=== PATIENT | male | born 1940 | race Caucasian/White ===

== ENCOUNTER 2018-01-07 15:28 | Inpatient (IN) | payer OTHER, MEDICARE ==
[2018-01-07 15:45] VITALS: BP 119/88; PULSE 96; RESP 18; TEMP 98.1; O2SAT 96
[2018-01-07 17:51] LABS: AUTOMATED NEUTROPHIL # 5.4 TH/MM3 (1.8-7.7); BASOPHIL % 0.3 % (0.0-2.0); EOSINOPHIL % 0.4 % (0.0-4.0); HEMATOCRIT 45.3 % (39.0-51.0); HEMOGLOBIN 15.9 GM/DL (13.0-17.0); LYMPH % 22.2 % (9.0-44.0); LYMPHOCYTE # 1.7 TH/MM3 (1.0-4.8); MEAN CELL VOLUME 91.6 FL (80.0-100.0); MEAN CORPUSCULAR HEMOGLOBIN 32.2 PG (27.0-34.0); MEAN CORPUSCULAR HGB CONC 35.2 % (32.0-36.0); MEAN PLATELET VOLUME 10.6 FL (7.0-11.0); MONO % 5.6 % (0.0-8.0); MONOCYTE # 0.4 TH/MM3 (0-0.9); NEUT % 71.5 % (16.0-70.0); PLATELET COUNT 151 TH/MM3 (150-450); RED BLOOD COUNT 4.95 MIL/MM3 (4.50-5.90); WHITE BLOOD COUNT 7.5 TH/MM3 (4.0-11.0)
[2018-01-07 18:11] LABS: ALBUMIN 4.2 GM/DL (3.4-5.0); ALT (GPT) 19 U/L (12-78); AST (GOT) 23 U/L (15-37); BICARBONATE 25.9 MEQ/L (21.0-32.0); BLOOD UREA NITROGEN 6 MG/DL (7-18); CALCIUM 8.6 MG/DL (8.5-10.1); CHLORIDE 104 MEQ/L (98-107); GLOMERULAR FILTRATION RATE 109 ML/MIN (>89); GLUCOSE,RANDOM 97 MG/DL (74-106); SODIUM (NA) 138 MEQ/L (136-145)
[2018-01-07 18:13] LABS: ALKALINE PHOSPHATASE 79 U/L (45-117); TOTAL BILIRUBIN ADULT 0.8 MG/DL (0.2-1.0); TOTAL PROTEIN 7.8 GM/DL (6.4-8.2)
--- NOTE | 2018-01-07 18:16 | PD ---
HPI Chief Complaint: Psychiatric Symptoms Time Seen by Provider: 18:15 Travel History International Travel<30 days: No Contact w/Intl Traveler<30days: No Traveled to known affect area: No History of Present Illness HPI 77-year-old male from [place] visiting his sister, who is brought in under the Barakat act. Patient reports that his daughters called his sister while he was visiting her, and stated that they wanted to have him placed in a nursing facility which made him very upset and he was threatening. He now denies suicidal or homicidal ideation. He states no medical issues or injuries. He has no known drug allergies. [facility] Past Medical History Medical History: Denies Significant Hx Diminished Hearing: No Past Surgical History Surgical History: Unable to Obtain Social History Alcohol Use: No Tobacco Use: Yes Substance Use: No Allergies-Medications (Allergen,Severity, Reaction): Coded Allergies: No Known Allergies (Unverified , 01/07/18) Review of Systems Except as stated in HPI: all other systems reviewed are Neg General / Constitutional: No: Fever Eyes: No: Visual changes HENT: No: Headaches Cardiovascular: No: Chest Pain or Discomfort Respiratory: No: Shortness of Breath Gastrointestinal: No: Abdominal Pain Genitourinary: No: Dysuria Musculoskeletal: No: Pain Skin: No Rash Neurologic: No: Weakness Psychiatric: No: Depression Endocrine: No: Polydipsia Hematologic/Lymphatic: No: Easy Bruising Physical Exam Narrative GENERAL: SKIN: Warm and dry. HEAD: Atraumatic. Normocephalic. EYES: Pupils equal and round. No scleral icterus. No injection or drainage. ENT: No nasal bleeding or discharge. Mucous membranes pink and moist. NECK: Trachea midline. No JVD. CARDIOVASCULAR: Regular rate and rhythm. RESPIRATORY: No accessory muscle use. Clear to auscultation. Breath sounds equal bilaterally. GASTROINTESTINAL: Abdomen soft, non-tender, nondistended. Hepatic and splenic margins not palpable. MUSCULOSKELETAL: Extremities without clubbing, cyanosis, or edema. No obvious deformities. NEUROLOGICAL: Awake and alert. No obvious cranial nerve deficits. Motor grossly within normal limits. Five out of 5 muscle strength in the arms and legs. Normal speech. PSYCHIATRIC: Appropriate mood and affect; insight and judgment normal. Data Data Last Documented VS Vital Signs Date Time Temp Pulse Resp B/P (MAP) Pulse Ox O2 Delivery O2 Flow Rate FiO2 01/07/18 18:00 16 01/07/18 15:45 98.1 96 119/88 (98) 96 Room Air Orders Orders Complete Blood Count With Diff (01/07/18 16:28) Comprehensive Metabolic Panel (01/07/18 16:28) Psych Screen (01/07/18 16:28) Diet Regular Basic (01/07/18 Dinner) Alcohol (Ethanol) (01/07/18 18:32) Labs Laboratory Tests Test 01/07/18 17:35 White Blood Count 7.5 TH/MM3 Red Blood Count 4.95 MIL/MM3 Hemoglobin 15.9 GM/DL Hematocrit 45.3 % Mean Corpuscular Volume 91.6 FL Mean Corpuscular Hemoglobin 32.2 PG Mean Corpuscular Hemoglobin Concent 35.2 % Red Cell Distribution Width 13.0 % Platelet Count 151 TH/MM3 Mean Platelet Volume 10.6 FL Neutrophils (%) (Auto) 71.5 % Lymphocytes (%) (Auto) 22.2 % Monocytes (%) (Auto) 5.6 % Eosinophils (%) (Auto) 0.4 % Basophils (%) (Auto) 0.3 % Neutrophils # (Auto) 5.4 TH/MM3 Lymphocytes # (Auto) 1.7 TH/MM3 Monocytes # (Auto) 0.4 TH/MM3 Eosinophils # (Auto) 0.0 TH/MM3 Basophils # (Auto) 0.0 TH/MM3 CBC Comment DIFF FINAL Differential Comment Blood Urea Nitrogen 6 MG/DL Creatinine 0.70 MG/DL Random Glucose 97 MG/DL Total Protein 7.8 GM/DL Albumin 4.2 GM/DL Calcium Level 8.6 MG/DL Alkaline Phosphatase 79 U/L Aspartate Amino Transf (AST/SGOT) 23 U/L Alanine Aminotransferase (ALT/SGPT) 19 U/L Total Bilirubin 0.8 MG/DL Sodium Level 138 MEQ/L Potassium Level 3.9 MEQ/L Chloride Level 104 MEQ/L Carbon Dioxide Level 25.9 MEQ/L Anion Gap 8 MEQ/L Estimat Glomerular Filtration Rate 109 ML/MIN Ethyl Alcohol Level 150 MG/DL [facility] Medical Decision Making Medical Screen Exam Complete: Yes Emergency Medical Condition: Yes Differential Diagnosis Barakat act. Confusion. Aggressive behavior. Narrative Course Psychiatric labs ordered per protocol. EtOH is 150. Other labs are within normal limits. Psychiatric screening is ordered . Patient is medically cannulated for psych screen. Condition: Stable Fermin Asif Jan 07, 2018 18:16
[2018-01-07] MEDS ORDERED: LORazepam 2 MG TAB PO ONE (21:15)
[2018-01-08] MEDS ORDERED: ACETAMINOPHEN 325 MG TAB PO PRN ×2 (02:45→10:15)
[2018-01-08] MEDS ORDERED: hydrOXYzine HCL 50 MG TAB PO PRN ×2 (02:45→10:15)
[2018-01-08] MEDS ORDERED: ALUMINUM/MAGNESIUM/SIMETH 30 ML CUP PO PRN ×2 (02:45→10:15)
[2018-01-08] MEDS ORDERED: MAGNESIUM HYDROXIDE SUSP 30 ML CUP PO PRN ×2 (02:45→10:15)
[2018-01-08] MEDS ORDERED: diphenhydrAMINE HCL 50 MG CAP PO PRN ×2 (02:45→10:15)
[2018-01-08] MEDS ORDERED: diphenhydrAMINE HCL 50 MG/ML VIAL IM PRN (02:45)
[2018-01-08 06:38] VITALS: BP 150/79; PULSE 78; RESP 16; TEMP 97.6; O2SAT 97
[2018-01-08] MEDS: NICOTINE 21 MG/24 HR PATCH T-DERMAL SCH (09:00)
[2018-01-08] MEDS ORDERED: LORazepam 2 MG TAB PO PRN (10:15)
[2018-01-08] MEDS ORDERED: FLUMAZENIL 0.5 MG/5 ML VIAL IV PUSH PRN (10:15)
[2018-01-08] MEDS ORDERED: LORazepam 1 MG TAB PO PRN (10:15)
[2018-01-08] MEDS ORDERED: LORazepam 2 MG/ML VIAL IV PUSH PRN ×4 (10:15)
--- NOTE | 2018-01-08 10:35 | HHI.HP ---
Provisional Diagnosis Admission Date Jan 08, 2018 at 02:10 [place] [place] other diseases of behavioral issues, Alzheimer's dementia and late onset, alcohol abuse with intoxication Certification of Person's Competence To Provide Express and Informed Consent I have personally examined Levon Crowell , a person being served at [facility] on, Jan 08, 2018 10:18. Express and informed consent means consent voluntarily given in writing, by a competent person, after sufficient explanation and disclosure of the subject matter involved to enable the person to make a knowing and willful decision without any element of force, fraud, deceit, duress, or other form of constraint or coercion. This person is 18 years of age or older, is not now known to be incompetent to consent to treatment with a guardian advocate, and does not have a health care surrogate or proxy currently making medical treatment decisions. I have found this person to be one of the following: [] Competent to provide express and informed consent, as defined above, for voluntary admission to this facility and is competent to provide express and informed consent for treatment. He/she has the consistent capacity to make well reasoned, willful, and knowing decisions concerning his or her medical or mental health treatment. The person fully and consistently understands the purpose of the admission for examination/placement and is fully capable of personally exercising all rights [place] [] Incompetent to provide express and informed consent to voluntary admission, and this is incompetent to provide express and informed consent to treatment. The person must be transferred to involuntary status and a petition for a guardian advocate filed with the Circuit Court. [xx] Refusing to provide express and informed consent to voluntary admission but is competent to provide express and informed consent for treatment. The person must be discharged or transferred to involuntary status. Form shall be completed within 24 hours of a person's arrival at the receiving facility and filed in the clinical record of each person: 1. Admitted on a voluntary basis 2. Permitted to provide express and informed consent to his/her own treatment 3. Allowed to transfer from involuntary to voluntary status 4. Prior to permitting a person to consent to his or her own treatment after having been previously found incompetent to consent to treatment. History of Present Illness Capacity: Lacks Capacity (patient lacks capacity to sign for her hospitalization, patient has capacity to sign for medication) HPI Patient is a 77-year-old white male who appears recently flew from [place] to [place] to be with his sister. It appears to get into an altercation with her sister. Also involved with this appears to be alcohol use patient seen and screened in the ED urine toxicology was not done in the ED. The blood alcohol level of 150 was checked on 01/07. Patient is Barakat acted of the posterior commissure's office on 01/07/18 at 2:13 PM that document reviewed and agreed with this essentially stating subject has Alzheimer's and dementia flew down for [place] because his daughter was going to place him in assisted living subject showed up at his sister's residents got into a verbal argument subject left and has no where to stay subject would suffer from neglect by refusing to care for himself. Patient is seen screened in the ED as mentioned above on medically cleared. At the present time patient sitting quietly in his room. Patient given a somewhat mixed confusing story as to how he wound up here in [place]. He is somewhat discouraging towards his daughters and [place] saying they were living off of his Social Security check and he had to get away from there. Is also somewhat confused between stating he is staying with his sister or his daughter here in [place]. He did acknowledge going to a local bar and having a couple of beers. He did acknowledge drinking 8-12+ beers daily though he minimizes their effect on him. He denies any detox or rehabilitation a legal issues related to the alcohol when asked about his memory issues he said his memory is fine. Patient is aware of his person states he knows he is in a hospital he knows he is in [facility]. However his affect shows some mild incongruity with the statements. Her some lability with this also. He denies any prior psychiatric contact hospitalization a psychotropic medication. He denies any detox or rehabilitation legal issues related to drinking. He denies other drug use. He denies any other criminal or law enforcement issues. At this time patient does meet criteria for further assessment of the Barakat act I'll do first opinion request second opinion. They feel he does have capacity to sign for his medications. We will have the hospitalists consult with us for this gentleman we will place him on [facility] protocol. Attempted to reach patient's sister to discuss with her this showman' s history the behaviors medication and possible placement issues Review of Systems Constitutional: DENIES: Diaphoretic episodes, Fatigue, Fever, Weight gain, Weight loss, Chills, Dizziness, Change in appetite, Night Sweats Endocrine: DENIES: Heat/cold intolerance, Polydipsia, Polyuria, Polyphagia Eyes: DENIES: Blurred vision, Diplopia, Eye inflammation, Eye pain, Vision loss , Photosensitivity, Double Vision Ears, nose, mouth, throat: DENIES: Tinnitus, Hearing loss, Vertigo, Nasal discharge, Oral lesions, Throat pain, Hoarseness, Ear Pain, Running Nose, Epistaxis, Sinus Pain, Toothache, Odynophagia Respiratory: DENIES: Apneas, Cough, Snoring, Wheezing, Hemoptysis, Sputum production, Shortness of breath Cardiovascular: DENIES: Chest pain, Palpitations, Syncope, Dyspnea on Exertion , PND, Lower Extremity Edema, Orthopnea, Claudication Gastrointestinal: DENIES: Abdominal pain, Black stools, Bloody stools, Constipation, Diarrhea, Nausea, Vomiting, Difficulty Swallowing, Anorexia Genitourinary: DENIES: Sexual dysfunction, Urinary frequency, Urinary incontinence, Urgency, Hematuria, Dysuria, Nocturia, Penile Discharge, Testicular Pain, Testicular Swelling Musculoskeletal: DENIES: Joint pain, Muscle aches, Stiffness, Joint Swelling, Back pain, Neck pain Integumentary: DENIES: Abnormal pigmentation, Nail changes, Pruritus, Rash Hematologic/lymphatic: DENIES: Bruising, Lymphadenopathy Immunologic/allergic: DENIES: Eczema, Urticaria Neurologic: DENIES: Abnormal gait, Headache, Localized weakness, Paresthesias, Seizures, Speech Problems, Tremor, Poor Balance Psychiatric: COMPLAINS OF: Anxiety, Mood changes, Agitation Past Psych History Psychological trauma history Patient denies Violence risk - others (6 mos) Patient denies Violence risk - self (6 mos) Patient denies Substance Abuse History Drugs/Alcohol past 12 months Patient active alcohol abuser states he drinks 8-12+ beers daily though he denies hard liquor denies other drug use Past Family Social History Coded Allergies: No Known Allergies (Unverified , 01/07/18) Current Medications Medications (Trade) Dose Ordered Sig/[place] Route Start Time Stop Time Status Last Admin (Atarax) 50 mg Q6H PRN PO 01/08/18 02:45 (Benadryl) 50 mg Q6H PRN PO 01/08/18 02:45 (Benadryl Inj) 50 mg Q6H PRN IM 01/08/18 02:45 (Tylenol) 650 mg Q4H PRN PO 01/08/18 02:45 (Milk Of Magnesia Liq) 30 ml DAILY PRN PO 01/08/18 02:45 (Mag-Al Plus Susp Liq) 30 ml Q6H PRN PO 01/08/18 02:45 (Habitrol 21 Mg Patch.24 Hr) 1 patch DAILY T-DERMAL 01/08/18 09:00 Miscellaneous Information 1 HS T-DERMAL 01/08/18 21:00 Family Psych History Patient denies history of mental health issues and family of origin Social History Patient has 2 adult daughters in [place] has flown to this area to be with his sister Patient's Strengths (min. 2) Patient verbal able [facility] Physical Exam Patient seen screen exam of them medically cleared through ED at the present time patient sitting quietly in his room he is in no acute distress, he is in no respiratory distress. No complaints of abdominal pain. Patient moving all 4 extremities without difficulty. No abnormal motor movements noted Vital Signs Vital Signs Date Time Temp Pulse Resp B/P (MAP) Pulse Ox O2 Delivery O2 Flow Rate FiO2 01/08/18 06:38 97.6 78 16 150/79 (102) 97 01/07/18 15:45 Room Air I/O 01/08/18 01/08/18 01/09/18 08:00 16:00 00:00 Intake Total 240 ml Balance 240 ml Lab Results Test 01/07/18 17:35 White Blood Count 7.5 TH/MM3 Red Blood Count 4.95 MIL/MM3 Hemoglobin 15.9 GM/DL Hematocrit 45.3 % Mean Corpuscular Volume 91.6 FL Mean Corpuscular Hemoglobin 32.2 PG Mean Corpuscular Hemoglobin Concent 35.2 % Red Cell Distribution Width 13.0 % Platelet Count 151 TH/MM3 Mean Platelet Volume 10.6 FL Neutrophils (%) (Auto) 71.5 % Lymphocytes (%) (Auto) 22.2 % Monocytes (%) (Auto) 5.6 % Eosinophils (%) (Auto) 0.4 % Basophils (%) (Auto) 0.3 % Neutrophils # (Auto) 5.4 TH/MM3 Lymphocytes # (Auto) 1.7 TH/MM3 Monocytes # (Auto) 0.4 TH/MM3 Eosinophils # (Auto) 0.0 TH/MM3 Basophils # (Auto) 0.0 TH/MM3 CBC Comment DIFF FINAL Differential Comment Blood Urea Nitrogen 6 MG/DL Creatinine 0.70 MG/DL Random Glucose 97 MG/DL Total Protein 7.8 GM/DL Albumin 4.2 GM/DL Calcium Level 8.6 MG/DL Alkaline Phosphatase 79 U/L Aspartate Amino Transf (AST/SGOT) 23 U/L Alanine Aminotransferase (ALT/SGPT) 19 U/L Total Bilirubin 0.8 MG/DL Sodium Level 138 MEQ/L Potassium Level 3.9 MEQ/L Chloride Level 104 MEQ/L Carbon Dioxide Level 25.9 MEQ/L Anion Gap 8 MEQ/L Estimat Glomerular Filtration Rate 109 ML/MIN Ethyl Alcohol Level 150 MG/DL Mental Status Examination Appearance: Appropriate Consciousness: Alert Orientation: Person, Place, Date/Time Motor Activity: Normal gait Speech: Unremarkable Language: Adequate Fund of Knowledge: Adequate Attention and Concentration: Other (fair) Memory: Unremarkable (fair) Mood: Other (euthymic to mildly guarded) Affect: Other (slight decreased range and intensity) Thought Process & Associations: Linear Thought Content: Other (though paranoid) Hallucination Type: None Delusion Type: Paranoid (vigilant focusing on daughter's) Suicidal Ideation: No Suicidal Plan: No Suicidal Intention: No Homicidal Ideation: No Homicidal Plan: No Homicidal Intention: No Insight: Poor Judgment: Poor Assessment & Plan Problem List: (1) DEMENTIA IN OTH DISEASES CLASSD ELSWHR W BEHAVIORAL DISTURB ICD Codes: F02.81 - DEMENTIA IN OTH DISEASES CLASSD ELSWHR W BEHAVIORAL DISTURB (2) ALZHEIMER'S DISEASE WITH LATE ONSET ICD Codes: G30.1 - ALZHEIMER'S DISEASE WITH LATE ONSET (3) ALCOHOL ABUSE WITH INTOXICATION, UNCOMPLICATED ICD Codes: F10.120 - ALCOHOL ABUSE WITH INTOXICATION, UNCOMPLICATED Assessment & Plan Estimated LOS: 5-7 days this time patient meets criteria for further observation assessment under the Barakat act I'll do first opinion request second opinion. I feel this of capacity self-medication. Though the hospice consult will us. Will place the patient on the [facility] protocol. We will attempt to reach patient's sister to refer family meeting for next 1-2 days to further discuss this gentleman's diagnosis treatment and placement options Discharge Planning This needs to discuss the patient's family Request HC Surrog/Guard Advoc?: No Kiel De La Torre MD Jan 08, 2018 10:35
--- NOTE | 2018-01-08 16:29 | PD.HHIRCNE ---
Disclaimer Patient was given an explanation of the nature and purpose of the evaluation. Patient agreed to proceed with the evaluation and treatment plan. History Reason for Referral The patient is a 77 year old right handed male status who presented to the [facility] ED under Barakat Act for inability to care for self. He flew from [place] to [place] to see his sister, who lives in the area, and became intoxicated, which is reportedly a chronic problem for the patient. Neuroimaging has not been completed. His laboratory values have been unremarkable. He is referred for baseline neuropsychological evaluation to assess cognitive, behavioral and emotional aspects of the injury and to provide treatment recommendations. He is from [place] originally, moving to [place] and then to [place] and finally [place]. He graduated high school, and was an average student. He was in the during [place], but reported to service connected illnesses. 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 He is x 2, x 2 and has two children in [place]. Additional Psychosocial Hx Tobacco Use In Past 12 Months: Cigarettes Hx Caffeine Use: Yes Hx Substance Use: No Level of Education: High School Employment Status: Retired Prior Living Setting: Home Dominant Hand: Right Past Surgical/Medical History Past Surgery: No Major surgery in last 100 days: Unknown Hx of Neuro Prob: No Hx of Musculoskeletal Pro: No Hx of Cardiovascular Prob: No Hx of Respiratory Problem: No Hx of GI Problems: No Hx of Problems: No Hx of Immuno Disor: No Hx of Endocrine Problems: No Hx of Eye Probl: Yes (WEARS GLASSES) Hx of Hearing or Ear Problems: No Hx Dental Problems: No Hx Psychiatric Problems: No Hx Blood Dyscrasias: No Hx of MDRO: No Hx of Body/Medical Devices: No Blood Transfusion History Will receive Blood /Blood prod: Yes Medication Active Medications Acetaminophen (Tylenol) 650 mg Q4H PRN PO; Start 01/08/18 at 02:45; Stop at 10:21; Status DC Acetaminophen (Tylenol) 650 mg Q4H PRN PO; Start 01/08/18 at 10:15 Al Hydrox/Mg Hydrox/Simethicone (Mag-Al Plus Susp Liq) 30 ml Q6H PRN PO; Start 01/08/18 at 02:45; Stop 01/08/18 at 10:21; Status DC Al Hydrox/Mg Hydrox/Simethicone (Mag-Al Plus Susp Liq) 30 ml Q6H PRN PO; Start 01/08/18 at 10:15 Diphenhydramine HCl (Benadryl Inj) 50 mg Q6H PRN IM; Start 01/08/18 at 02:45 Diphenhydramine HCl (Benadryl) 50 mg HS PRN PO; Start 01/08/18 at 10:15 Diphenhydramine HCl (Benadryl) 50 mg Q6H PRN PO; Start 01/08/18 at 02:45 Flumazenil (Romazicon Inj) 0.2 mg Q1M PRN IV PUSH; Start 01/08/18 at 10:15 Hydroxyzine HCl (Atarax) 50 mg Q6H PRN PO; Start 01/08/18 at 02:45 Hydroxyzine HCl (Atarax) 50 mg Q6H PRN PO; Start 01/08/18 at 10:15 Lorazepam (Ativan Inj) 1 mg Q4H PRN IV PUSH; Start 01/08/18 at 10:15 Lorazepam (Ativan Inj) 2 mg Q15M PRN IV PUSH; Start 01/08/18 at 10:15 Lorazepam (Ativan Inj) 2 mg Q1H PRN IV PUSH; Start 01/08/18 at 10:15 Lorazepam (Ativan Inj) 2 mg Q2H PRN IV PUSH; Start 01/08/18 at 10:15 Lorazepam (Ativan) 1 mg Q4H PRN PO; Start 01/08/18 at 10:15 Lorazepam (Ativan) 2 mg ONCE ONCE PO Last administered on 01/07/18at 21:34; Admin Dose 2 MG; Start 01/07/18 at 21:15; Stop 01/07/18 at 21:16; Status DC Lorazepam (Ativan) 2 mg Q2H PRN PO; Start 01/08/18 at 10:15 Magnesium Hydroxide (Milk Of Magnesia Liq) 30 ml DAILY PRN PO; Start 01/08/18 at 02:45; Stop 01/08/18 at 10:21; Status DC Magnesium Hydroxide (Milk Of Magnesia Liq) 30 ml DAILY PRN PO; Start 01/08/18 at 10:15 Miscellaneous Information 1 HS T-DERMAL; Start 01/08/18 at 21:00 Nicotine (Habitrol 21 Mg Patch.24 Hr) 1 patch DAILY T-DERMAL; Start 01/08/18 at 09:00 Mental Status Assessment Orientation: oriented to Self, oriented to Place, oriented to Time, oriented to Situation Mental Status: WFL: Language/Interactions, Attention, Visuospatial/Construction , Impaired: Thought processing, Learning/Memory, Problem-Solving Adjustment/Coping Assessment Adjustment/Coping: None: Depression, Anxiety, Pain, Mild: Awareness, Insight Observation In terms of emotional functioning, the patient demonstrated normal adjustment. This patient demonstrated no signs of agitation, impulsivity or disinhibition, nor was there remarkable evidence of a formal thought disorder or psychosis. There was no evidence of depression or anxiety. The Geriatric Depression Scale- Short Form was administered given the ease to which it is administered to persons with known neurological pathology, and the patient endorsed 0 of 15 symptoms, which falls within the non depressed range. Thought content was free from suicidal or homicidal although initially he appeared quite suspicious of this examiner, unnecessarily so, and thought processes were rambling and at times tangential. The patients mood was euthymic, and his affect was stable and appropriate. The patient appears to possess some degree of insight and awareness into their situation and within the limits of this brief evaluation, limited judgment given some of the poor decisions he has made concerning alcohol dependence. LTG Status: Deferred STG Status: Deferred Team Members: Physician, Neuropsychologist Effort Assessment Effort: Average Cognition Assessment Rating: WFL: Attention/Processing, Language, Visual Perception, Spatial Judgement, Variable: Executive, Awareness-Insight Adjustm, Impaired: Immediate & Delayed Memor Observation The patient was alert and oriented to person, place, time and circumstances surrounding the recent hospitalization. The Mini-Mental State Exam was administered, and the patient obtained a score of 25 out of 30 points, which falls in the normal range. However, on further evaluation, specific deficits were identified. In terms of attention skills, the patient exhibited normal abilities. The patient was able to remain on task and remember basic and complex verbal instructions. In terms of memory functioning, the patient exhibited challenges. The patients initial registration of verbal information was poor primarily due to effort rather than ability, and the patient was able to improve their memory with repetition. After a period of delay, the patient was unable to recall a significant amount of this information from memory. More specifically, on the Luria Memory Words Test-Short Form, the patients trial one performance was 1 of 7 words, trial five performance was 6 of 7 words , the patients Total Learning score was 24 (just above cut-off), and the patients Delayed recall score was 1 of 7 words (well below cut-off). In terms of speech and language skills, the patient demonstrated normal abilities. The patients initiated spontaneous conversation throughout the assessment. Speech was characterized by adequate prosody, grammar, articulation, volume and rate. No remarkable dysnomic or paraphasic errors were noted either during conversational speech or on confrontation naming tasks. Reading recognition skills were adequate, as were writing skills. His reading recognition skills fell at a standard score of 98 (percentile rank of 45). The patients comprehension for basic one- and two-stage commands was normal. In terms of problem-solving skills, the patient exhibited challenges. The patients ability to understand abstraction reasoning was below normal, as reflected in his ability to abstract essential shared characteristics of objects and concepts. Mathematical reasoning skills were normal. Speed of information processing, as evaluated by both the Letter and Category Fluency Tests was notable for dissociation of performance with poor performance on the Letter Fluency test but adequate performance on the Category Fluency test. Finally, there was no evidence of ideomotor apraxia or constructional difficulties during this brief evaluation. Summary/Diagnosis Summary This 77 year old man who traveled here from [place] to meet his sister is presently under Barakat Act for concerns about his ability to care for himself in the face of chronic alcohol dependence. Neuropsychological evaluation results demonstrate a moderate memory retrieval disorder, retained language skills, and compromised abstract reasoning, processing speed and thought processes. The overall constellation of these findings in combination with his clinical history indicate a Mild Neurocognitive Disorder, presumably due to a combination of cerebrovascular compromise (it would be anticipated that head CT will show SVID and atrophy) and chronic alcohol dependence. The neuropsychological profile is not consistent with an Alzheimer's pattern (which would show dense memory disorder, visuospatial deficits and dysnomic errors). Obviously, his insight, awareness and judgment are questionable, such that essentially on a whim, he decided to fly to [facility] without any plan of care. However, these insight, awareness and judgment deficits appear to be something other than neurogenic. 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 However, he does appear able to appreciate a situation and its likely consequences and he does appear to demonstrate the ability to manipulate most information in some sort of a rational fashion in spite of these deficits. This however, may change particularly if he develops alcohol withdrawal symptoms during his stay. Given his various comorbidities (which he apparently disregards), he requires physician follow-up. Coincident with this, head CT would be helpful to ascertain a baseline neuropathology assessment. He should also abstain from alcohol going forward, although this is unlikely something that he will choose to do unless in a controlled environment. His continued alcohol dependence will most certainly cause his mild neurocognitive disorder to advance quicker. Carroll Miner PhD Jan 08, 2018 4:29 pm
--- NOTE | 2018-01-08 17:29 | PD.CONS ---
HPI Service [facility] Hospitalists Consult Requested By Dr. De La Torre Reason for Consult Medical management Primary Care Physician No Primary Care Physician Diagnoses: (1) Foot swelling (2) Bunion, left foot (3) Alcohol dependence in controlled environment History of Present Illness 77-year-old male admitted to the psychiatric unit for reported suicidal ideation in the setting of alcohol dependence. Questionable dementia. Hospitalist service consulted for medical management. On my evaluation, the patient reports that he is feeling okay. He denies any medical problems except for left plantar foot swelling. Patient reports this started as a small wound about 2 months ago. The wound dried out but he has persistent swelling on the plantar aspect of the left big toe. He has no pain associated with it. No fevers or chills. He denies any known trauma to the area. Review of Systems Constitutional: DENIES: Fever, Chills Respiratory: DENIES: Shortness of breath Musculoskeletal: COMPLAINS OF: Joint Swelling Except as stated in HPI: all other systems reviewed are Neg Past Family Social History Allergies: Coded Allergies: No Known Allergies (Unverified , 01/07/18) Past Medical History No known medical history. Does not take any medications except for multivitamins. Past Surgical History Denies any previous history. Family History Denies any significant family medical history Social History Patient reports he quit smoking 35 years ago. He admits to drinking beers, sometimes heavily. No illicit drug use. Physical Exam Vital Signs Vital Signs Date Time Temp Pulse Resp B/P (MAP) Pulse Ox O2 Delivery O2 Flow Rate FiO2 01/08/18 06:38 97.6 78 16 150/79 (102) 97 01/07/18 18:00 16 Physical Exam GENERAL: This is a well-nourished, well-developed patient, in no apparent distress. SKIN: No rashes, ecchymoses or lesions. Cool and dry. HEAD: Atraumatic. Normocephalic. No temporal or scalp tenderness. EYES: Pupils equal round and reactive. Extraocular motions intact. No scleral icterus. No injection or drainage. ENT: Nose without bleeding, purulent drainage or septal hematoma. Throat without erythema, tonsillar hypertrophy or exudate. Uvula midline. Airway patent. NECK: Trachea midline. No JVD or lymphadenopathy. Supple, nontender, no meningeal signs. CARDIOVASCULAR: Regular rate and rhythm without murmurs, gallops, or rubs. RESPIRATORY: Clear to auscultation. Breath sounds equal bilaterally. No wheezes , rales, or rhonchi. GASTROINTESTINAL: Abdomen soft, non-tender, nondistended. No hepato-splenomegaly , or palpable masses. No guarding. MUSCULOSKELETAL: Left plantar aspect of the great toe, there is a golf ball size swelling. Soft. No significant surrounding cellulitis. Not tender to palpation. There is a dime size dry wound in the middle of it. NEUROLOGICAL: Awake and alert. Cranial nerves II through XII intact. Motor and sensory grossly within normal limits. Five out of 5 muscle strength in all muscle groups. Normal speech. Laboratory Laboratory Tests Test 01/07/18 17:35 White Blood Count 7.5 Red Blood Count 4.95 Hemoglobin 15.9 Hematocrit 45.3 Mean Corpuscular Volume 91.6 Mean Corpuscular Hemoglobin 32.2 Mean Corpuscular Hemoglobin Concent 35.2 Red Cell Distribution Width 13.0 Platelet Count 151 Mean Platelet Volume 10.6 Neutrophils (%) (Auto) 71.5 Lymphocytes (%) (Auto) 22.2 Monocytes (%) (Auto) 5.6 Eosinophils (%) (Auto) 0.4 Basophils (%) (Auto) 0.3 Neutrophils # (Auto) 5.4 Lymphocytes # (Auto) 1.7 Monocytes # (Auto) 0.4 Eosinophils # (Auto) 0.0 Basophils # (Auto) 0.0 CBC Comment DIFF FINAL Differential Comment Blood Urea Nitrogen 6 Creatinine 0.70 Random Glucose 97 Total Protein 7.8 Albumin 4.2 Calcium Level 8.6 Alkaline Phosphatase 79 Aspartate Amino Transf (AST/SGOT) 23 Alanine Aminotransferase (ALT/SGPT) 19 Total Bilirubin 0.8 Sodium Level 138 Potassium Level 3.9 Chloride Level 104 Carbon Dioxide Level 25.9 Anion Gap 8 Estimat Glomerular Filtration Rate 109 Ethyl Alcohol Level 150 Result Diagram: 01/07/18 1735 01/07/18 173 Assessment and Plan Problem List: (1) Foot swelling ICD Code: M79.89 - Other specified soft tissue disorders (2) Bunion, left foot ICD Code: M21.612 - Bunion of left foot (3) Alcohol dependence in controlled environment ICD Code: F10.20 - Alcohol dependence, uncomplicated Assessment and Plan 77-year-old male admitted to the psychiatric unit under Barakat act for threatening statements. Left foot swelling: Per patient this started as a small one at the bottom of her foot 2 months ago. It has since developed into a golf ball size. It is not tender to palpation. No significant surrounding cellulitis. He denies any trauma - Will start with a plain x-ray of the foot - Consult podiatry for assistance Alcohol dependence: - The patient was counseled - [facility] protocol Concern for Alzheimer's dementia with behavioral disturbances: - Neuro psychologist and psychiatry following Discussed Condition With Patient. Will follow up Irene Vera MD Jan 08, 2018 17:29
[2018-01-08 18:10] VITALS: BP 121/79; PULSE 82; RESP 16; TEMP 98; O2SAT 98
[2018-01-08] MEDS ORDERED: REMOVE OLD NICOTINE PATCH T-DERMAL SCH (21:00)
--- NOTE | 2018-01-08 22:01 | RADRPT ---
EXAM DATE/TIME: 01/08/2018 20:53 [place] COMPARISON: No previous studies available for comparison. INDICATIONS : Left foot swelling and pain. MEDICAL HISTORY : Unobtainable. SURGICAL HISTORY : Unobtainable. ENCOUNTER: Initial ACUITY: 1 day PAIN SCORE: 2/10 LOCATION: Left foot. FINDINGS: There is prominent soft tissue swelling surrounding the great toe metatarsophalangeal joint. Moderate arthritic changes are present involving the first second and third metatarsophalangeal joints with l ess significant changes elsewhere including within the interphalangeal joints. The hindfoot is grossl y intact. There are vascular calcifications present. CONCLUSION: Arthritic changes and prominent soft tissue swelling around the great toe metatarsophalangeal joint. Kiel Mckeon MD on January 08, 2018 at 21:58 Board Certified Radiologist. This report was verified electronically.
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
[2018-01-09] MEDS: NICOTINE 21 MG/24 HR PATCH T-DERMAL SCH (09:00)
[2018-01-09 09:27] LABS: BICARBONATE 28.3 MEQ/L (21.0-32.0); BLOOD UREA NITROGEN 12 MG/DL (7-18); CHLORIDE 102 MEQ/L (98-107); CHOLESTEROL 158 MG/DL (120-200); CREATININE 0.66 MG/DL (0.60-1.30); GLOMERULAR FILTRATION RATE 117 ML/MIN (>89); GLUCOSE,RANDOM 96 MG/DL (74-106); SODIUM (NA) 139 MEQ/L (136-145)
[2018-01-09 09:32] LABS: HDL CHOLESTEROL 47.8 MG/DL (40.0-60.0); LDL CHOLESTEROL 79 MG/DL (0-99); TRIGLYCERIDES 155 MG/DL (42-150)
--- NOTE | 2018-01-09 10:13 | HHI.DS ---
Psychiatry Discharge Summary Inpatient Psychiatric care?: Yes Advance Directive: No Reason Not Provided: DECLINED Mental Health AdvanceDirective: No Health Care Proxy: No Admission Admission Date Jan 08, 2018 at 02:10 Admission Diagnosis: (1) DEMENTIA IN OTH DISEASES CLASSD ELSWHR W BEHAVIORAL DISTURB ICD Code: F02.81 - DEMENTIA IN OTH DISEASES CLASSD ELSWHR W BEHAVIORAL DISTURB (2) ALCOHOL ABUSE WITH INTOXICATION, UNCOMPLICATED ICD Code: F10.120 - ALCOHOL ABUSE WITH INTOXICATION, UNCOMPLICATED (3) ALZHEIMER'S DISEASE WITH LATE ONSET ICD Code: G30.1 - ALZHEIMER'S DISEASE WITH LATE ONSET Brief History Patient is a 77-year-old white male who appears recently flew from [place] to [place] to be with his sister. It appears to get into an altercation with her sister. Also involved with this appears to be alcohol use patient seen and screened in the ED urine toxicology was not done in the ED. The blood alcohol level of 150 was checked on 01/07. Patient is Barakat acted of the posterior commissure's office on 01/07/18 at 2:13 PM that document reviewed and agreed with this essentially stating subject has Alzheimer's and dementia flew down for [place] because his daughter was going to place him in assisted living subject showed up at his sister's residents got into a verbal argument subject left and has no where to stay subject would suffer from neglect by refusing to care for himself. Patient is seen screened in the ED as mentioned above on medically cleared. At the present time patient sitting quietly in his room. Patient given a somewhat mixed confusing story as to how he wound up here in [place]. He is somewhat discouraging towards his daughters and [place] saying they were living off of his Social Security check and he had to get away from there. Is also somewhat confused between stating he is staying with his sister or his daughter here in [place]. He did acknowledge going to a local bar and having a couple of beers. He did acknowledge drinking 8-12+ beers daily though he minimizes their effect on him. He denies any detox or rehabilitation a legal issues related to the alcohol when asked about his memory issues he said his memory is fine. Patient is aware of his person states he knows he is in a hospital he knows he is in [facility]. However his affect shows some mild incongruity with the statements. Her some lability with this also. He denies any prior psychiatric contact hospitalization a psychotropic medication. He denies any detox or rehabilitation legal issues related to drinking. He denies other drug use. He denies any other criminal or law enforcement issues. At this time patient does meet criteria for further assessment of the Barakat act I'll do first opinion request second opinion. They feel he does have capacity to sign for his medications. We will have the hospitalists consult with us for this gentleman we will place him on [facility] protocol. 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 On psychiatric evaluation the patient is very oppositional, selectively mute, very irritable, refusing to talk at the beginning. With reassurance and redirection he was able at least to tell me that he doesn't have a reason to be here. But he is disorganized, disoriented, Agitated. Tobacco Use In Past 30 Days: 5 or More Cigarettes/Day Alcohol Use: 2-4 Times Per Month Hospital Course Patient's hospital course was uneventful. He showed no behavior problems overnight. If a communication with patient's family. It appears his daughters in [place] want him return to their care. Patient's sister who lives local is also in agreement with this. Patient is also in agreement with this. Patient to be discharged to his sister today she will arrange for airplane tickets for him to fly to [place] today were will be picked up by his daughters further care given through their supervision. The been no Rx by me Results Blood Pressure 121 / 79 Vital Signs Date Time Temp Pulse Resp B/P (MAP) Pulse Ox O2 Delivery O2 Flow Rate FiO2 01/08/18 18:10 98.0 82 16 121/79 (93) 98 01/07/18 15:45 Room Air Laboratory Tests Test 01/07/18 17:35 01/09/18 07:33 Neutrophils (%) (Auto) 71.5 % (16.0-70.0) Blood Urea Nitrogen 6 MG/DL (7-18) Ethyl Alcohol Level 150 MG/DL (0-5) Potassium Level 3.4 MEQ/L (3.5-5.1) Triglycerides Level 155 MG/DL (42-150) Laboratory Results Test 01/09/18 07:33 Cholesterol Level 158 MG/DL (120-200) HDL Cholesterol 47.8 MG/DL (40.0-60.0) LDL Cholesterol 79 MG/DL (0-99) Triglycerides Level 155 MG/DL (42-150) Summary of Procedures None done Imaging Last Impressions Foot X-Ray 01/08/18 0000 Signed Impressions: Service Date/Time: Monday, January 08, 2018 20:53 - CONCLUSION: Arthritic changes and prominent soft tissue swelling around the great toe metatarsophalangeal joint. Kiel Mckeon MD Pending results at discharge: No Medications # of Antipsychotic meds at D/C: 0 Approp Antipsych med options 1 - Minimum of three failed multiple trials of monotherapy. 2 - Documented plan to taper to monotherapy due to previous use of multiple meds OR cross-taper in progress at D/C. 3 - Documentation of augmentation of Clozapine. 4 - Justification other than those listed in allowable values 1-3, document here : Discharge Discharge Date: Jan 09, 2018 Discharge Diagnosis: (1) DEMENTIA IN OTH DISEASES CLASSD ELSWHR W BEHAVIORAL DISTURB Diagnosis: Principal ICD Code: F02.81 - DEMENTIA IN OTH DISEASES CLASSD ELSWHR W BEHAVIORAL DISTURB (2) ALCOHOL ABUSE WITH INTOXICATION, UNCOMPLICATED Diagnosis: Secondary ICD Code: F10.120 - ALCOHOL ABUSE WITH INTOXICATION, UNCOMPLICATED (3) ALZHEIMER'S DISEASE WITH LATE ONSET Diagnosis: Secondary ICD Code: G30.1 - ALZHEIMER'S DISEASE WITH LATE ONSET Pt Condition on Discharge: Stable Discharge Disposition: Discharge Home Discharge Instructions Diet Instructions: As Tolerated, No Restrictions Activities you can perform: Regular-No Restrictions Scheduled Appointment: follow-up mental health care in [place] Discharge Time > 30 minutes Mental Status Examination Appearance: Appropriate Consciousness: Alert Orientation: Person, Place, Date/Time Motor Activity: Normal gait Speech: Unremarkable Language: Adequate Fund of Knowledge: Adequate Attention and Concentration: Other (fair) Memory: Unremarkable (fair) Mood: Other (euthymic to mildly guarded) Affect: Other (slight decreased range and intensity) Thought Process & Associations: Linear Thought Content: Other (though paranoid) Hallucination Type: None Delusion Type: Paranoid (vigilant focusing on daughter's) Suicidal Ideation: No Suicidal Plan: No Suicidal Intention: No Homicidal Ideation: No Homicidal Plan: No Homicidal Intention: No Insight: Poor Judgment: Poor Discharge/Advance Care Plan Health Problems: (1) DEMENTIA IN OTH DISEASES CLASSD ELSWHR W BEHAVIORAL DISTURB (2) ALZHEIMER'S DISEASE WITH LATE ONSET (3) ALCOHOL ABUSE WITH INTOXICATION, UNCOMPLICATED Goals to promote your health * To prevent worsening of your condition and complications * To maintain your health at the optimal level Directions to meet your goals Take your medications as prescribed Follow your dietary instruction Follow activity as directed Keep your appointments as scheduled Take your immunizations and boosters as scheduled If your symptoms worsen call your PCP, if no PCP go to Urgent Care Center or Emergency Room For 12/06 questions related to your inpatient stay or results of tests pending at discharge, please contact Dr. Kiel De La Torre at Smoking is Dangerous to Your Health. Avoid second hand smoking Kiel De La Torre MD Jan 09, 2018 10:13
--- NOTE | 2018-01-09 13:51 | PD.TTN ---
Patient Problems 1. Discharge planning 2. Medication compliance 3. Knowledge deficit 4. Lack of coping skills Progress Toward Goals Provider Present: Dr. Lovely De La Torre Provider Input: 01/08/18 sister called and states he came on a plane from [place] without family knowing and they want him back in [place] Psychiatric Counselors Present: Yun Monterroso LCSW Psych Therapist Input: 01/08/18 new today Group Spec/RT/OT/MCMULLEN Present: Fermin Costello OT Group Spec/RT/OT/MCMULLEN Input: 01/08/18 Yun El LCSW Jan 09, 2018 13:51
[2018-01-09 17:30] LABS: HEMOGLOBIN A1C 5.5 % (4.3-6.0)
== END 2018-01-09 10:55 | disposition home or self-care (01) | DRG 57 ==
LOC: NEDAMB 15:28 → NEDA 01-08 02:10 → H250 01-08 02:45
PROVIDERS: ADMIT Psychiatry & Neurology Psychiatry; ATTEND Psychiatry & Neurology Psychiatry
DX: G30.1 Alzheimer's disease with late onset (principal); F02.81 Dementia in other diseases classified elsewhere, unspecified severity, with behavioral disturbance; R45.851 Suicidal ideations; F10.220 Alcohol dependence with intoxication, uncomplicated; M21.612 Bunion of left foot; M19.072 Primary osteoarthritis, left ankle and foot; F94.0 Selective mutism; Y90.6 Blood alcohol level of 120-199 mg/100 ml; Z87.891 Personal history of nicotine dependence
CPT/HCPCS: 73630; 80048; 80053; 80061; 80307; 83036; 85025; 99285